=== PATIENT | female | born 1990 | race Hispanic/Latino ===

== ENCOUNTER 2024-01-08 09:37 | Emergency (ER) | payer MEDICAID, OTHER ==
[~2024-01-08] VITALS: Ht 167.6 cm; Wt 74.8 kg
[2024-01-08 10:37] LABS: BASOPHILS # (AUTO) 0.04 K/uL (0.00-0.20); BASOPHILS % (AUTO) 0.7 % (0.0-5.0); EOSINOPHILS # (AUTO) 0.05 K/uL (0.00-0.70); EOSINOPHILS % (AUTO) 0.9 % (0.0-8.0); HEMATOCRIT 40.2 % (36-48); IMMATURE GRANULOCYTE ABSOLUTE 0.01 K/uL (0-1); LYMPHOCYTES # (AUTO) 1.2 K/uL (1.0-4.8); MEAN CORPUSCULAR HEMOGLOBIN 31.6 pg (27.0-33.0); MEAN CORPUSCULAR HGB CONC 35.8 g/dL (32.0-36.0); MEAN CORPUSCULAR VOLUME 88.4 fL (79-99); MONOCYTES # (AUTO) 0.3 K/uL (0.1-1.0); MONOCYTES % (AUTO) 5.1 % (3.0-13.0); NEUTROPHILS # (AUTO) 4.3 K/uL (1.8-7.7); NEUTROPHILS % (AUTO) 73.1 % (40.0-77.0); PLATELET COUNT (AUTO) 188 K/uL (130-400); RED BLOOD CELL COUNT(AUTO) 4.55 MIL/uL (4.00-5.50); RED CELL DISTRIBUTION WIDTH 11.9 % (11.0-15.5); WHITE BLOOD COUNT (AUTO) 5.8 K/uL (4.8-10.8)
[2024-01-08 10:45] LABS: CREATININE 0.5 mg/dL (0.5-1.0)
[2024-01-08 11:23] LABS: APPEARANCE,URINE CLEAR (CLEAR); BILIRUBIN,URINE NEGATIVE (NEGATIVE); COLOR,URINE LIGHT-YELLOW (YELLOW); GLUCOSE, URINE (UA) NEGATIVE (NEGATIVE); KETONES,URINE NEGATIVE (NEGATIVE); LEUKOCYTE ESTERASE ,URINE NEGATIVE Leu/uL (NEGATIVE); NITRATE,URINE 1+ (NEGATIVE); OCCULT BLOOD,URINE NEGATIVE (NEGATIVE); PH,URINE 5.5 (5.0-8.0); PROTEIN,URINE NEGATIVE (NEGATIVE); UROBILINOGEN,URINE 0.2 mg/dL (0.2-1.0)
[2024-01-08 11:24] LABS: ADD UA MICROSCOPIC YES
[2024-01-08 11:35] LABS: BACTERIA,URINE RARE /HPF (None Seen); MUCUS,URINE RARE LPF (None Seen); RBC,URINE 0-1 /HPF (0-1); SQUAMOUS EPITHELIAL CELL,UR RARE /HPF (0-2)
[2024-01-08] MEDS: MORPHINE 2 MG SYG IVP ONE (11:58)
[2024-01-08] MEDS: ONDANSETRON 4MG INJ IVP ONE (13:34)
[2024-01-08] MEDS: HYDROMORPHONE 0.5 MG SYG (0.5MG/0.5ML) IVP ONE ×2 (13:34→17:02)
[2024-01-08] MEDS: CEFTRIAXONE 1G VIAL IVPB ONE (14:22)
[2024-01-08] MEDS ORDERED: ZIPRASIDONE MESYLATE 20 MG/VIAL IM SCH (23:40)
[2024-01-09 00:22] VITALS: BP 108/74; PULSE 74; RESP 16; O2SAT 98
== END 2024-01-09 03:06 | disposition short-term general hospital (02) ==
LOC: EDH 09:37
DX: G89.29 Other chronic pain (principal); M54.9 Dorsalgia, unspecified; M48.56XA Collapsed vertebra, not elsewhere classified, lumbar region, initial encounter for fracture; N39.0 Urinary tract infection, site not specified; G82.20 Paraplegia, unspecified; F32.A Depression, unspecified; Z98.890 Other specified postprocedural states
CPT/HCPCS: 99285; 72131; 96374; 96375; 80048; 85025; 87086 ×2; 87186; 81001; 81025; 36415; 72128; 96376; J2270; J0696; J2405; J1170 ×2